=== PATIENT | male | born 1955 | race Caucasian/White ===

== ENCOUNTER 2017-02-06 16:28 | Emergency (ER) | payer MEDICARE ==
[2017-02-06 16:37] VITALS: BMI 24.2
[2017-02-06 16:43] VITALS: TEMP 97.7
[2017-02-06 17:20] LABS: ADD MANUAL DIFF? NO
[2017-02-06] MEDS ORDERED: Levalbuterol 1.25 MG/3 ML Inhal Soln UD IH STA (17:25)
[2017-02-06 17:28] LABS: BASO # 0.04 K/mm3 (0.0-2.0); BASO % 0.5 % (0.0-3.0); EOS # 0.3 (0.0-0.7); EOS % 3.1 % (1.5-5.0); GRAN # 4.85 (1.4-6.5); GRAN % 59.8 % (50.0-68.0); HEMATOCRIT 34.4 % (42.0-52.0); LYMPH # 2.5 (1.2-3.4); LYMPH % 30.2 % (22.0-35.0); MEAN CORPUSCULAR HEMOGLOBIN 30.7 pg (25.0-35.0); MEAN CORPUSCULAR HGB CONC 34.9 g/dl (31.0-37.0); MEAN PLATELET VOLUME 9.6 fl (7.0-11.0); MONO # 0.5 (0.1-0.6); MONO % 6.4 % (1.0-6.0); PLATELET COUNT 217 10^3/uL (120.0-450.0); RED CELL DISTRIBUTION WIDTH 14.6 % (11.5-14.5); WHITE BLOOD COUNT 8.1 10^3/ul (4.5-11.0)
[2017-02-06 17:50] LABS: ALB/GLOB RATIO 1.3 (1.1-1.8); ALKALINE PHOSPHATASE 122 U/L (38-133); ALT/SGPT 30 U/L (7-56); AST/SGOT 33 U/L (15-59); BILIRUBIN,TOTAL 0.4 mg/dL (0.2-1.3); BLOOD UREA NITROGEN 8 mg/dL (7-21); CALCIUM 9.4 mg/dL (8.4-10.5); CARBON DIOXIDE 25 mmol/L (21-33); CHLORIDE 102 mmol/L (98-107); GFR AFRICAN-AMERICAN > 60; GLUCOSE,RANDOM 108 mg/dL (70-110); LIPASE 94 U/L (23-300); POTASSIUM 3.7 mmol/L (3.6-5.0); SODIUM 140 mmol/L (132-148); TOTAL PROTEIN 7.7 g/dL (5.8-8.3)
--- NOTE | 2017-02-06 17:51 | ED PDOC ---
Arrival/HPI - General Chief Complaint: Medical Clearance Time Seen by Provider: 02/06/17 16:54 Historian: Family (Son) - History of Present Illness Narrative History of Present Illness (Text): 02/06/17 16:55 A 61 year old male, whose past medical history includes hypertension, diabetes, CAD/CABG, AICD and alcohol abuse, is brought into the emergency department via EMS. According to the patient's son, whom I spoke with on the phone, the patient came home intoxicated and seemed very upset. Son states the patient was cursing and throwing stuff around so he was concerned that the patient may have a heart attack due to his history. Patient admits to alcohol use earlier today but denies any chest pain, shortness of breath, fever, chills, nausea, vomiting , or any other complaints at this time. PMD: Dr. Yoder Time/Duration: Prior to Arrival Symptom Onset: Sudden Symptom Course: Unchanged Quality: Other Activities at Onset: Rest Context: Home Past Medical History - Provider Review Nursing Documentation Reviewed: Yes - Past History Past History: Non-Contributing - Infectious Disease Hx of Infectious Diseases: None - Tetanus Immunization Tetanus Immunization: Unknown - Cardiac Hx Cardiac Disorders: Yes Hx Hypertension: Yes Hx Internal Defibrillator: Yes Hx Pacemaker: Yes Other/Comment: bypass x 10 stents - Pulmonary Hx Asthma: Yes - Neurological Hx Dizziness: Yes - HEENT Hx Cataracts: Yes (bilateral catarct surgery) - Endocrine/Metabolic Hx Diabetes Mellitus Type 2: Yes - Musculoskeletal/Rheumatological Hx Falls: No - Gastrointestinal Hx Gastrointestinal Disorders: Yes - Psychiatric Hx Depression: No Hx Substance Use: No - Past Surgical History Past Surgical History: Unable to Obtain - Surgical History Hx Coronary Stent: Yes (10 stents) - Anesthesia Hx Anesthesia: Yes Hx Anesthesia Reactions: No Hx Malignant Hyperthermia: No - Suicidal Assessment Feels Threatened In Home Enviroment: No Family/Social History - Physician Review Nursing Documentation Reviewed: Yes Family/Social History: Unknown Family HX Smoking Status: Former Smoker Hx Alcohol Use: Yes Frequency of alcohol use: Few days per week Hx Substance Use: No Hx Substance Use Treatment: No Allergies/Home Meds Allergies/Adverse Reactions: Allergies No Known Allergies Allergy (Verified 10/22/16 18:38) Home Medications: Home Meds Medication Instructions Recorded Confirmed Unobtainable 10/22/16 10/22/16 Review of Systems - Physician Review All systems were reviewed & negative as marked: Yes - Review of Systems Constitutional: Other (alcohol use). absent: Fevers Respiratory: absent: SOB Cardiovascular: absent: Chest Pain Gastrointestinal: absent: Abdominal Pain, Diarrhea, Nausea, Vomiting Physical Exam Vital Signs Reviewed: Yes Vital Signs Temp Pulse Resp BP Pulse Ox 02/06/17 22:00 90 20 151/73 H 97 02/06/17 20:40 98 H 20 142/83 96 02/06/17 19:29 95 H 20 131/77 98 02/06/17 18:29 94 H 14 140/74 100 02/06/17 16:43 97.7 F 89 18 122/66 98 Temperature: Afebrile Blood Pressure: Normal Pulse: Regular Respiratory Rate: Normal Appearance: Positive for: Well-Appearing, Non-Toxic, Comfortable Pain Distress: None Mental Status: Positive for: Alert and Oriented X 3 Finger Stick Blood Glucose: 98 - Systems Exam Head: Present: Atraumatic, Normocephalic Pupils: Present: PERRL Extroacular Muscles: Present: EOMI Conjunctiva: Present: Normal Mouth: Present: Moist Mucous Membranes, Other (alcohol on breath) Neck: Present: Normal Range of Motion Respiratory/Chest: Present: Good Air Exchange, Wheezes (very mild wheeze at the left base). No: Respiratory Distress, Accessory Muscle Use Cardiovascular: Present: Regular Rate and Rhythm, Normal S1, S2. No: Murmurs Abdomen: Present: Normal Bowel Sounds. No: Tenderness, Distention, Peritoneal Signs Back: Present: Normal Inspection Upper Extremity: Present: Normal Inspection. No: Cyanosis, Edema Lower Extremity: Present: Normal Inspection. No: Edema Neurological: Present: GCS=15, CN II-XII Intact, Speech Normal Skin: Present: Warm, Dry, Normal Color. No: Rashes Psychiatric: Present: Alert, Oriented x 3, Normal Insight, Normal Concentration Medical Decision Making ED Course and Treatment: 02/06/17 16:55 Impression: A 61 year old male with an extensive cardiac history and alcohol abuse. Differential Diagnosis included but are not limited to: ACS vs. alcohol abuse Plan: -- EKG -- Chest X-ray -- Labs -- Urinalysis -- Xopenex -- Reassess and disposition Prior Visits: Notes and results from previous visits were reviewed. The patient last presented to the emergency department on 10/22/16 for chest pain and headache. Progress Notes: 02/06/17 19:00 Chest X-ray: Creator : Jama Rossi MD IMPRESSION: No active disease. No significant interval change compared to the prior examination(s). 02/06/17 22:42 Patient seem and examined with no acute physical complaints here in the emergency department. He was medically cleared and seen by PES and was cleared for discharge - ok for d/c to follow up pmd. 02/06/17 22:48 Information about rehab services given to patient. - Lab Interpretations Lab Results: 02/06/17 17:00 02/06/17 17:00 Lab Results 02/06/17 19:00: Urine Opiates Screen Negative, Urine Methadone Screen Negative, Ur Barbiturates Screen Negative, Ur Phencyclidine Scrn Negative, Ur Amphetamines Screen Negative, U Benzodiazepines Scrn Negative, U Oth Cocaine Metabols Negative, U Cannabinoids Screen Negative 02/06/17 19:00: Urine Color Yellow, Urine Appearance Sl cloudy, Urine pH 6.5, Ur Specific [place] 1.010, Urine Protein 100 H, Urine Glucose (UA) Negative, Urine Ketones Negative, Urine Blood Small H, Urine Nitrate Negative, Urine Bilirubin Negative, Urine Urobilinogen 0.2, Ur Leukocyte Esterase Negative, Urine RBC 0 - 2, Urine WBC Negative 02/06/17 17:00: Alcohol, Quantitative 176 H 02/06/17 17:00: Sodium 140, Potassium 3.7, Chloride 102, Carbon Dioxide 25, Anion Gap 17, BUN 8, Creatinine 1.0, Est GFR ( Amer) > 60, Est GFR (Non- Af Amer) > 60, Random Glucose 108, Calcium 9.4, Total Bilirubin 0.4, AST 33, ALT 30, Alkaline Phosphatase 122, Total Protein 7.7, Albumin 4.4, Globulin 3.3, Albumin/Globulin Ratio 1.3, Lipase 94 02/06/17 17:00: WBC 8.1, RBC 3.91, Hgb 12.0 L, Hct 34.4 L, MCV 88.0, MCH 30.7, MCHC 34.9, RDW 14.6 H, Plt Count 217, MPV 9.6, Gran % 59.8, Lymph % (Auto) 30.2 , Bee % (Auto) 6.4 H, Eos % (Auto) 3.1, Baso % (Auto) 0.5, Gran # 4.85, Lymph # 2.5, Bee # 0.5, Eos # 0.3, Baso # 0.04 02/06/17 16:38: POC Glucose (mg/dL) 97 I have reviewed the lab results: Yes - RAD Interpretation Radiology Orders: 02/06/17 17:08 CHEST PORTABLE [RAD] Stat - EKG Interpretation EKG Interpretation (Text): 02/06/17 22:45 NSR @ 89 with poor R wave progression; no new ST/T changes c/w previous on ; normal intervals; normal axis. Interpreted by ED Physician: Yes Type: 12 lead EKG Comparison: Similar to previous EKG (10/22/16) - Medication Orders Current Medication Orders: Discontinued Medications Levalbuterol HCl (Xopenex) 1.25 mg IH STAT STA Stop: 02/06/17 17:26 Last Admin: 02/06/17 17:31 Dose: 1.25 mg - Scribe Statement The provider has reviewed the documentation as recorded by the Yaoibe Anirudh Her Provider Scribe Attestation: All medical record entries made by the Scribe were at my direction and personally dictated by me. I have reviewed the chart and agree that the record accurately reflects my personal performance of the history, physical exam, medical decision making, and the department course for this patient. I have also personally directed, reviewed, and agree with the discharge instructions and disposition. Disposition/Present on Arrival - Present on Arrival Any Indicators Present on Arrival: Yes History of DVT/PE: No History of Uncontrolled Diabetes: Yes Urinary Catheter: No History of Decub. Ulcer: No History Surgical Site Infection Following: None - Disposition Have Diagnosis and Disposition been Completed?: Yes Diagnosis: Alcohol-induced mood disorder Disposition: HOME/ ROUTINE Disposition Time: 22:45 Patient Plan: Discharge Condition: GOOD Additional Instructions: Stop alcohol use. Recommend rehab (see information sheet given to you). Follow up with your primary care doctor. Return to the emergency department if any new concerning symptoms. Referrals: Lynn Yoder MD [Primary Care Provider] - Follow up with primary
--- NOTE | 2017-02-06 18:55 | RAD ---
HISTORY: psych . Technique: Single view portable semi erect @ 17:12. COMPARISON: 10/22/2016 PA FINDINGS: LUNGS: No active pulmonary disease. PLEURA: No significant pleural effusion identified, no pneumothorax apparent. CARDIOVASCULAR: No radiographic findings to suggest acute or significant cardiovascular disease. Position/ configuration of pacemaker device: Satisfactory. OSSEOUS STRUCTURES: No significant abnormalities. VISUALIZED UPPER ABDOMEN: Normal. OTHER FINDINGS: None. IMPRESSION: No active disease. No significant interval change compared to the prior examination(s).
[2017-02-06 19:25] LABS: PH,URINE 6.5 (4.7-8.0); URINE BILIRUBIN NEGATIVE (NEGATIVE); URINE BLOOD SMALL (NEGATIVE); URINE GLUCOSE (UA) NEGATIVE (NEGATIVE); URINE KETONE NEGATIVE (NEGATIVE); URINE LEUKOCYTE ESTERASE NEGATIVE Leu/uL (NEGATIVE); URINE PROTEIN 100 mg/dL (<30 mg/dL); URINE UROBILINOGEN 0.2 E.U./dL (<1 E.U./dL)
[2017-02-06 19:28] LABS: URINE APPEARANCE SL CLOUDY (CLEAR); URINE COLOR YELLOW (YELLOW)
[2017-02-06 19:30] VITALS: RESP 20
[2017-02-06 19:33] LABS: URINE RBC 0 - 2 /hpf (0-2); URINE WBC NEGATIVE /hpf (0-6)
[2017-02-06 22:17] VITALS: BP 151/73; PULSE 90; O2SAT 97
--- NOTE | 2017-02-07 14:27 | CARD ---
APPROVED REPORT EKG Measurement Heart [id number] <Conclusion> Sinus rhythm with occasional premature ventricular complexes Possible Left atrial enlargement Anteroseptal infarct, age undetermined Small q waves 2,3,F STTW changes c/w ischemia
== END 2017-02-06 22:53 | disposition home or self-care (01) ==
LOC: ED 16:28
DX: F10.94 Alcohol use, unspecified with alcohol-induced mood disorder (principal); Y90.6 Blood alcohol level of 120-199 mg/100 ml; I10 Essential (primary) hypertension; E11.9 Type 2 diabetes mellitus without complications; Z95.1 Presence of aortocoronary bypass graft; Z87.891 Personal history of nicotine dependence
CPT/HCPCS: 71010; 80053; 81001; 82948; 83690; 85025; 90791; 93005; 99284; G0480

== ENCOUNTER 2017-08-30 18:23 | Observation (INO) | payer MEDICARE, OTHER ==
[2017-08-30 18:27] VITALS: BMI 25.7
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
[2017-08-30 19:24] LABS: BASO # 0.04 K/mm3 (0.0-2.0); BASO % 0.4 % (0.0-3.0); EOS # 0.3 (0.0-0.7); EOS % 3.2 % (1.5-5.0); GRAN # 5.45 (1.4-6.5); GRAN % 55.9 % (50.0-68.0); HEMOGLOBIN 13.7 g/dL (14.0-18.0); LYMPH # 3.3 (1.2-3.4); LYMPH % 34.1 % (22.0-35.0); MEAN CELL VOLUME 91.4 fl (80.0-105.0); MEAN CORPUSCULAR HEMOGLOBIN 32.6 pg (25.0-35.0); MEAN CORPUSCULAR HGB CONC 35.7 g/dl (31.0-37.0); MEAN PLATELET VOLUME 10.8 fl (7.0-11.0); MONO # 0.6 (0.1-0.6); MONO % 6.4 % (1.0-6.0); RBC 4.2 10^6/uL (3.5-6.1); RED CELL DISTRIBUTION WIDTH 12.1 % (11.5-14.5); WHITE BLOOD COUNT 9.7 10^3/ul (4.5-11.0)
[2017-08-30 19:37] LABS: ALB/GLOB RATIO 1.2 (1.1-1.8); ALBUMIN 4.3 g/dL (3.0-4.8); ALT/SGPT 28 U/L (7-56); AST/SGOT 35 U/L (17-59); BLOOD UREA NITROGEN 9 mg/dL (7-21); CALCIUM 9.4 mg/dL (8.4-10.5); GFR AFRICAN-AMERICAN > 60; GFR NON-AFRICAN AMERICAN > 60
[2017-08-30 19:48] LABS: TROPONIN I 0.12 ng/mL
[2017-08-30] MEDS ORDERED: Influenza Vaccine 60 mcg/0.5 mL SYR (4YR UP) IM ONE (21:31)
[2017-08-30] MEDS ORDERED: Pneumococcal 23-Valent Vaccine IM ONE (21:31)
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
[2017-08-31] MEDS ORDERED: Pantoprazole 40 mg EC Tab PO SCH (06:00)
[2017-08-31 06:22] LABS: BASO # 0.04 K/mm3 (0.0-2.0); BASO % 0.5 % (0.0-3.0); EOS # 0.2 (0.0-0.7); EOS % 2.7 % (1.5-5.0); GRAN # 6.42 (1.4-6.5); GRAN % 72.8 % (50.0-68.0); HEMOGLOBIN 12.7 g/dL (14.0-18.0); LYMPH # 1.6 (1.2-3.4); LYMPH % 18.2 % (22.0-35.0); MEAN CELL VOLUME 91.6 fl (80.0-105.0); MEAN CORPUSCULAR HEMOGLOBIN 32.2 pg (25.0-35.0); MEAN CORPUSCULAR HGB CONC 35.1 g/dl (31.0-37.0); MEAN PLATELET VOLUME 10.6 fl (7.0-11.0); MONO # 0.5 (0.1-0.6); MONO % 5.8 % (1.0-6.0); RBC 3.95 10^6/uL (3.5-6.1); RED CELL DISTRIBUTION WIDTH 12.2 % (11.5-14.5); WHITE BLOOD COUNT 8.8 10^3/ul (4.5-11.0)
[2017-08-31 06:23] VITALS: RESP 20
[2017-08-31 06:32] VITALS: O2SAT 97
[2017-08-31 06:40] LABS: ALB/GLOB RATIO 1.1 (1.1-1.8); ALBUMIN 3.8 g/dL (3.0-4.8); ALT/SGPT 26 U/L (7-56); AST/SGOT 37 U/L (17-59); BLOOD UREA NITROGEN 9 mg/dL (7-21); CALCIUM 9.2 mg/dL (8.4-10.5); GFR AFRICAN-AMERICAN > 60; GFR NON-AFRICAN AMERICAN > 60
--- NOTE | 2017-08-31 08:40 | RAD ---
HISTORY: Zero chest pain. Portable study 19:06 COMPARISON: 02/06/2017 FINDINGS: LUNGS: No active pulmonary disease. PLEURA: No significant pleural effusion identified, no pneumothorax apparent. CARDIOVASCULAR: No radiographic findings to suggest acute or significant cardiovascular disease. Position/ configuration of pacemaker device: Satisfactory. Macro CABG OSSEOUS STRUCTURES: No significant abnormalities. VISUALIZED UPPER ABDOMEN: Normal. OTHER FINDINGS: None. IMPRESSION: No active disease. No significant interval change compared to the prior examination(s).
[2017-08-31 08:43] LABS: TROPONIN I 0.11 ng/mL
[2017-08-31] MEDS: Insulin Lispro (humaLOG) MEDIUM Coverage SC SCH ×2 (08:47→12:22)
[2017-08-31] MEDS ORDERED: Enoxaparin 60 mg Syringe SC SCH (09:15)
[2017-08-31] MEDS ORDERED: Rosuvastatin Calcium [Crestor] 40 MG (HOME MED) PO SCH (10:00)
[2017-08-31] MEDS ORDERED: Aspirin 325 mg EC Tablets PO SCH (10:00)
[2017-08-31 12:09] VITALS: BP 135/82; PULSE 84; TEMP 97.8
--- NOTE | 2017-08-31 18:25 | CARD ---
APPROVED REPORT EKG Measurement Heart [id number] [place] [id number] <Conclusion> Sinus rhythm with occasional premature ventricular complexes and fusion complexes Anteroseptal infarct, age undetermined Abnormal ECG
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
--- NOTE | 2017-09-04 08:18 | CON ---
CONSULTING SERVICE: Cardiology. REASON FOR THE CONSULTATION: Unstable angina, chest pain, alcoholic intoxication, history of coronary artery disease, history of CABG recently a year ago. BRIEF CLINICAL HISTORY: This is a 62 year old male with a past medical history significant for coronary artery disease being followed by [facility], [facility]. History of coronary artery disease, CABG in 10/2016, history of AICD, history of alcohol abuse, he was drinking yesterday and had a dispute with and then developed chest pain, came to the emergency room here. First troponin 0.12, second troponin 0.12. The patient states that my chest discomfort completely feels better, wanted to go home. Denies any chest pain now. In view of troponin positive, cath offered to the patient, but the patient wanted to go the [facility] with Dr. Osorio, because since he is being taken care for a long time and for the continuity of care, he wanted to go there, and if cath is needed, he wanted it to be done there. PAST HISTORY: Significant for coronary artery disease, is status post multiple stents, last stent was in 09/29/2016. Then, the patient admitted here on 10/22/2016 with unstable angina, and upon the patient's request, the patient was transferred to [facility] for the patient's cath and then the patient had a coronary artery bypass surgery in the end of 10/2016. History of AICD since 1999, history of diabetes, history of hyperlipidemia. CARDIAC STUDIES: Previous cardiac workup as follows; the patient had an echo done 08/02/2017 most recently, at [facility], read by and that shows ventricle function severely reduced, ejection fraction 15% by , mild apical septal anteroseptal wall akinetic, normal Doppler. The patient had a coronary artery bypass surgery in 10/2016. The patient admitted here in 10/22/2016 with unstable angina, and upon the patient's request he was transferred to [facility]. Prior to this, the patient had a multiple stent and history AICD. SOCIAL HISTORY: Alcohol abuse, claims that he has stopped drinking, but blood alcohol level is 198 on admission. ALLERGIES: NO KNOWN DRUG ALLERGIES. CURRENT MEDICATIONS: The patient is taking at home metformin, Januvia, atorvastatin, glimepiride, Plavix. REVIEW OF SYSTEMS: As per HPI. PHYSICAL EXAMINATION: VITAL SIGNS: Temperature afebrile, heart rate , blood pressure 133/72. HEENT: PERRLA. Extraocular muscles intact. NECK: Supple. No carotid bruits or thyromegaly. CHEST: Clear to auscultation. HEART: S1, S2 regular. ABDOMEN: Soft. EXTREMITIES: Clubbing and cyanosis negative. LABORATORY DATA: EKG showed normal sinus, poor RR progression, anterior wall AL of undetermined age. Blood workup; WBC 8.8, hemoglobin 12.7, hematocrit 36.2, and platelet count 231. Chemistry shows sodium 139, potassium 4, chloride 105, carbon dioxide 25, anion gap of 13, BUN 9, and creatinine 0.7, troponin 0.11. IMPRESSION: Acute coronary syndrome, alcoholic intoxication, coronary artery disease, coronary artery bypass graft, diabetes, hypertension and hyperlipidemia. RECOMMENDATION: We will abort Lovenox one dose, cardiac catheterization offered to the patient, the patient wanted to be transferred to [facility] with Dr. Osorio. A call placed to Dr. Osorio's service, and waiting for their response, if the accepting physician willing, then the patient would be transferred to [facility] for possible cardiac catheterization. While dictating this, Dr. Osorio called from telephone number [phone] and they will transfer the patient to [facility]. Thank you for providing us the opportunity in taking care of the patient. Anupam Hull MD
== END 2017-08-31 12:51 | disposition short-term general hospital (02) ==
LOC: ED 18:23 → ERH 20:10 → 2RSO 21:06
PROVIDERS: ADMIT Internal Medicine; ATTEND Internal Medicine
DX: F10.129 Alcohol abuse with intoxication, unspecified (principal); R07.9 Chest pain, unspecified; E11.9 Type 2 diabetes mellitus without complications; Z79.4 Long term (current) use of insulin; I25.10 Atherosclerotic heart disease of native coronary artery without angina pectoris; I10 Essential (primary) hypertension; K29.20 Alcoholic gastritis without bleeding; E78.5 Hyperlipidemia, unspecified; Z95.810 Presence of automatic (implantable) cardiac defibrillator; Z87.891 Personal history of nicotine dependence; Z95.1 Presence of aortocoronary bypass graft; Z79.02 Long term (current) use of antithrombotics/antiplatelets; Z79.82 Long term (current) use of aspirin; Z95.5 Presence of coronary angioplasty implant and graft
CPT/HCPCS: 36415; 71010; 80053; 82550; 82948; 83615; 84484; 85025; 93005; 96372; 99285; G0378; G0480; J1650

== ENCOUNTER 2018-05-08 08:13 | Observation (INO) | payer MEDICARE ==
[2018-05-08 08:21] VITALS: BMI 23.3
[2018-05-08] MEDS ORDERED: Morphine 4 mg/ml ISec IVP STA (08:26)
[2018-05-08] MEDS ORDERED: Sodium Chloride 0.9% 500 ML IV STA (08:28)
[2018-05-08 08:48] LABS: BASO # 0.05 K/mm3 (0.0-2.0); BASO % 0.6 % (0.0-3.0); EOS # 0.2 (0.0-0.7); EOS % 2.8 % (1.5-5.0); GRAN # 6.22 (1.4-6.5); GRAN % 72.5 % (50.0-68.0); LYMPH # 1.4 (1.2-3.4); LYMPH % 15.7 % (22.0-35.0); MEAN CELL VOLUME 90.8 fl (80.0-105.0); MEAN CORPUSCULAR HGB CONC 35.2 g/dl (31.0-37.0); MEAN PLATELET VOLUME 11.5 fl (7.0-11.0); MONO # 0.7 (0.1-0.6); MONO % 8.4 % (1.0-6.0); RBC 4.69 10^6/uL (3.5-6.1); RED CELL DISTRIBUTION WIDTH 13.8 % (11.5-14.5); WHITE BLOOD COUNT 8.6 10^3/ul (4.5-11.0)
[2018-05-08 08:49] LABS: INR 0.9; PROTHROMBIN TIME 10.3 SECONDS (9.4-12.5)
--- NOTE | 2018-05-08 09:00 | ED PDOC ---
Arrival/HPI - General Chief Complaint: Chest Pain Time Seen by Provider: 05/08/18 08:20 Historian: Patient - History of Present Illness Narrative History of Present Illness (Text): 05/08/18 08:25 62 year old male, whose past medical history includes high cholesterol, hypertension, cardiomyopathy, Coronary Artery bypass graft, non-stemi PA and diabetes, who was brought in by S with aching midsternal chest pain for the past hour, described as 6/10. Patient notes the pain started after he took his morning medication. Patient states the pain he is feeling reminds him of the pain he had during a previous heart attack. Patient is currently taking Plavix and Lanoxin as home medication. Patient denies any fever, chills, shortness of breath, nausea, vomiting, diarrhea, urinary symptoms, back pain, neck pain, headache, dizziness, or any other complaints. Time/Duration: Prior to Arrival (patient notes chest pain for about 1 hour now, started when he took his morning medication) Symptom Onset: Sudden Symptom Course: Unchanged Quality: Aching Severity Level: 6 Activities at Onset: Light Past Medical History - Provider Review Nursing Documentation Reviewed: Yes - Past History Past History: Non-Contributing - Infectious Disease Hx of Infectious Diseases: None - Tetanus Immunization Tetanus Immunization: Unknown - Cardiac Hx PA: Yes Hx Pacemaker: Yes ([employer]) - Pulmonary Hx Asthma: Yes - Neurological Hx Paralysis: No - HEENT Hx Cataracts: Yes (bilateral catarct surgery) - Endocrine/Metabolic Hx Diabetes Mellitus Type 2: Yes - Hematological/Oncological Hx Blood Transfusions: Yes Hx Blood Transfusion Reaction: No - Musculoskeletal/Rheumatological Hx Musculoskeletal Disorders: Yes - Gastrointestinal Hx Gastrointestinal Disorders: Yes - Genitourinary/Gynecological Hx Sexually Transmitted Diseases: No - Psychiatric Hx Depression: No Hx Substance Use: No - Past Surgical History Past Surgical History: Unable to Obtain - Surgical History Hx Coronary Artery Bypass Graft: Yes Hx Coronary Stent: Yes - Anesthesia Hx Anesthesia: Yes Hx Anesthesia Reactions: No Hx Malignant Hyperthermia: No - Suicidal Assessment Feels Threatened In Home Enviroment: No Family/Social History - Physician Review Nursing Documentation Reviewed: Yes Family/Social History: No Known Family HX Smoking Status: Former Smoker Hx Alcohol Use: (OCCASIONAL) Hx Substance Use: No Hx Substance Use Treatment: No Allergies/Home Meds Allergies/Adverse Reactions: Allergies No Known Allergies Allergy (Verified 03/14/18 09:25) Home Medications: Home Meds Medication Instructions Recorded Confirmed Clopidogrel [Plavix] 75 mg PO DAILY 08/30/17 05/08/18 Glimepiride [Amaryl] 4 mg PO DAILY 08/30/17 05/08/18 Multivitamin [Daily Danyell] 1 each PO DAILY 08/30/17 05/08/18 Omeprazole Magnesium [Prilosec Otc] 40 mg PO DAILY 08/30/17 05/08/18 Rosuvastatin Calcium [Crestor] 20 mg PO DAILY 08/30/17 05/08/18 SITagliptin [Januvia] 100 mg PO DAILY 08/30/17 05/08/18 metFORMIN [glucOPHAGE] 850 mg PO BID 08/30/17 05/08/18 Digoxin [Lanoxin] 0.125 mg PO DAILY 11/14/17 05/08/18 Entresto 49 mg-51 mg Tablet 1 tab PO BID 11/14/17 05/08/18 Furosemide [Lasix] 40 mg PO TID 11/14/17 05/08/18 Aspirin [Adult Low Dose Aspirin EC] 1 tab PO DAILY 05/08/18 05/08/18 Carvedilol [Coreg] 1 tab PO BID 05/08/18 05/08/18 Linaclotide [Linzess] 72 mcg PO DAILY 05/08/18 05/08/18 Spironolactone [Aldactone] 1 tab PO DAILY 05/08/18 05/08/18 Review of Systems - Physician Review All systems were reviewed & negative as marked: Yes - Review of Systems Constitutional: Normal. absent: Fevers Eyes: Normal ENT: Normal Respiratory: Normal. absent: SOB, Cough Cardiovascular: Chest Pain (midsternal chest pain for past hour, started after he took his morning medication). absent: Normal Gastrointestinal: Normal. absent: Diarrhea, Nausea, Vomiting Genitourinary Male: Normal Musculoskeletal: Normal. absent: Back Pain, Neck Pain Skin: Normal Neurological: Normal. absent: Headache, Dizziness Endocrine: Normal Hemo/Lymphatic: Normal Psychiatric: Normal Physical Exam Vital Signs Reviewed: Yes Vital Signs Temp Pulse Resp BP Pulse Ox 05/08/18 12:56 98.3 F 90 16 132/76 100 05/08/18 12:54 98.3 F 90 16 132/76 100 05/08/18 11:00 79 18 132/89 100 05/08/18 08:26 98.3 F 104 H 17 158/92 H 99 Temperature: Afebrile Blood Pressure: Hypertensive Pulse: Tachycardic Respiratory Rate: Normal Appearance: Positive for: Well-Appearing, Non-Toxic, Comfortable Pain Distress: None Mental Status: Positive for: Alert and Oriented X 3 Finger Stick Blood Glucose: 233 - Systems Exam Head: Present: Atraumatic, Normocephalic Pupils: Present: PERRL Extroacular Muscles: Present: EOMI Conjunctiva: Present: Normal Mouth: Present: Moist Mucous Membranes Neck: Present: Normal Range of Motion Respiratory/Chest: Present: Clear to Auscultation, Good Air Exchange. No: Respiratory Distress, Accessory Muscle Use Cardiovascular: Present: Regular Rate and Rhythm, Normal S1, S2. No: Murmurs Abdomen: No: Tenderness, Distention, Peritoneal Signs Back: Present: Normal Inspection Upper Extremity: Present: Normal Inspection. No: Cyanosis, Edema Lower Extremity: Present: Normal Inspection. No: Edema Neurological: Present: GCS=15, CN II-XII Intact, Speech Normal Skin: Present: Warm, Dry, Normal Color. No: Rashes Psychiatric: Present: Alert, Oriented x 3, Normal Insight, Normal Concentration Medical Decision Making ED Course and Treatment: 05/08/18 08:25 Impression: 62 year old male who presents to the emergency department for midsternal chest pain for 1 hour prior to arrival, after he took his morning medication. Plan: -- EKG -- Labs -- X-Ray of chest -- Glucose, POC routine -- Morphine -- Nitrostat SL tab -- IV fluids -- Zofran -- Fancy Needleworker ONCE -- Reassess and disposition Prior Visits: Notes and results from previous visits were reviewed. Progress Notes: EKG: Ordered, reviewed, and independently interpreted the EKG. Rate : 116 BPM Rhythm : Sinus Tachycardia Interpretation : No ST-segment elevations or depressions, no T-wave inversions, normal intervals. Comparison : No previous EKG for comparison. X-Ray of chest reviewed by radiologist, shows: Dictator : George Arciniega MD Report Date : 05/08/2018 10:26:26 FINDINGS: LUNGS: No active pulmonary disease. PLEURA: No significant pleural effusion identified, no pneumothorax apparent. CARDIOVASCULAR: Normal heart size. AICD. Sternotomy wires. CABG. OSSEOUS STRUCTURES: No significant abnormalities. VISUALIZED UPPER ABDOMEN: Normal. OTHER FINDINGS: None. IMPRESSION: No active disease. 05/08/18 11:[address] Yoder who is aware of and agrees with plan. Patient will be admitted for acute coronary syndrome. - Lab Interpretations Lab Results: 05/08/18 08:20 05/08/18 08:20 Lab Results 05/08/18 08:35: POC Glucose (mg/dL) 233 H 05/08/18 08:20: Sodium 136, Potassium 4.7, Chloride 106, Carbon Dioxide 19 L, Anion Gap 16, BUN 11, Creatinine 0.7 L, Est GFR ( Amer) > 60, Est GFR ( Non-Af Amer) > 60, Random Glucose 258 H, Calcium 9.3, Phosphorus 4.6 H, Magnesium 1.3 L, Total Bilirubin 0.4, AST 25, ALT 19, Alkaline Phosphatase 101, Lactate Dehydrogenase 422, Total Creatine Kinase 61, Troponin I 0.02 D, NT-Pro- B Natriuret Pep 1770 H, Total Protein 7.0, Albumin 3.7, Globulin 3.3, Albumin/ Globulin Ratio 1.1 05/08/18 08:20: PT 10.3, INR 0.90 05/08/18 08:20: WBC 8.6, RBC 4.69, Hgb 15.0 D, Hct 42.6, MCV 90.8, MCH 32.0, MCHC 35.2, RDW 13.8, Plt Count 155, MPV 11.5 H, Gran % 72.5 H, Lymph % (Auto) 15.7 L, [place] % (Auto) 8.4 H, Eos % (Auto) 2.8, Baso % (Auto) 0.6, Gran # 6.22, Lymph # (Auto) 1.4, [place] # (Auto) 0.7 H, Eos # (Auto) 0.2, Baso # (Auto) 0.05 - RAD Interpretation Radiology Orders: 05/08/18 08:26 CHEST PORTABLE [RAD] Stat Track Repair Worker: Radiologist - EKG Interpretation Interpreted by ED Physician: Yes Type: 12 lead EKG - Medication Orders Current Medication Orders: Acetaminophen (Tylenol 325mg Tab) 650 mg PO Q6H PRN PRN Reason: Fever >100.4 F Aspirin (Ecotrin) 81 mg PO DAILY [facility] Last Admin: 05/09/18 09:28 Dose: 81 mg Atorvastatin Calcium (Lipitor) 80 mg PO DAILY [facility] Last Admin: 05/09/18 09:27 Dose: 80 mg Carvedilol (Coreg) 6.25 mg PO BID [facility] Last Admin: 05/09/18 09:27 Dose: 6.25 mg MAR Pulse and Blood Pressure Document 05/09/18 09:27 DEL (Rec: 05/09/18 09:27 [id number]) Pulse Pulse Rate (60-90) 74 Blood Pressure Blood Pressure (100/60-150/90) 112/76 Digoxin (Digoxin) 0.125 mg PO DAILY [facility] Last Admin: 05/09/18 09:28 Dose: 0.125 mg MAR Apical Pulse Rate Document 05/09/18 09:28 DEL (Rec: 05/09/18 09:28 [id number]) Apical Pulse Rate Apical Pulse Rate (60-90 beats/min) 74 Enoxaparin Sodium (Lovenox) 60 mg SC Q12H [facility] PRN Reason: Protocol Last Admin: 05/09/18 05:46 Dose: 60 mg Subcutaneous Administrations Document 05/09/18 05:46 OWUSR (Rec: 05/09/18 05:47 OWUSR [id number]) Injection Site MAR Injection Site Right Abdomen Charges for Administration # of Subcutaneous Administrations 1 Furosemide (Lasix) 40 mg PO BID [facility] Last Admin: 05/09/18 09:27 Dose: 40 mg MAR Blood Pressure Document 05/09/18 09:27 DEL (Rec: 05/09/18 09:27 DEL [id number]) Blood Pressure Blood Pressure (100/60-150/90) 112/76 Glimepiride (Amaryl) 4 mg PO DAILY [facility] Last Admin: 05/09/18 09:36 Dose: Dextrose/Sodium Chloride (Dextrose 5%/0.45% Ns 1000 Ml) 1,000 mls @ 50 mls/hr IV .Q20H [facility] Metformin HCl (Glucophage) 850 mg PO BID [facility] Last Admin: 05/09/18 09:36 Dose: Pantoprazole Sodium (Protonix Ec Tab) 40 mg PO 0630 [facility] Last Admin: 05/09/18 05:47 Dose: 40 mg Sacubitril/Valsartan (Entresto 49 Mg-51 Mg Tablet) 1 each PO BID [facility] Last Admin: 05/09/18 09:28 Dose: 1 each Sitagliptin Phosphate (Januvia) 100 mg PO DAILY [facility] Last Admin: 05/09/18 09:36 Dose: Not Given Non-Admin Reason: NPO Spironolactone (Aldactone) 25 mg PO BID [facility] Last Admin: 05/09/18 09:26 Dose: 25 mg Ticagrelor (Brilinta) 90 mg PO BID [facility] Last Admin: 05/09/18 09:27 Dose: 90 mg Discontinued Medications Al Hydrox/Mg Hydrox/Simethicone (Maalox Plus 30 Ml) 30 ml PO STAT STA Stop: 05/08/18 10:52 Last Admin: 05/08/18 11:18 Dose: 30 ml Belladonna/Phenobarbital ( Elixir) 5 ml PO STAT STA Stop: 05/08/18 10:52 Last Admin: 05/08/18 11:28 Dose: 5 ml Clopidogrel Bisulfate (Plavix) 75 mg PO DAILY [facility] Last Admin: 05/08/18 15:19 Dose: 75 mg Sodium Chloride (Sodium Chloride 0.9%) 500 mls @ 999 mls/hr IV .Q31M STA Stop: 05/08/18 08:58 Last Admin: 05/08/18 08:40 Dose: 999 mls/hr eMAR Start Stop Document 05/08/18 08:40 LM (Rec: 05/08/18 08:41 [id number] Intravenous Solution Start Date 05/08/18 Start Time 08:40 End Date 05/08/18 End time 09:10 Total Infusion Time 30 Magnesium Sulfate (Magnesium Sulfate 2 Gm/50 Ml Water) 2 gm in 50 mls @ 50 mls/ hr IVPB ONCE ONE Stop: 05/08/18 13:54 Last Admin: 05/08/18 15:17 Dose: 50 mls/hr eMAR Start Stop Document 05/08/18 15:17 JUR (Rec: 05/08/18 15:17 JUR [id number]) Intravenous Solution Start Date 05/08/18 Start Time 15:17 End Date 05/08/18 End time 17:17 Total Infusion Time 120 Magnesium Sulfate (Magnesium Sulfate 2 Gm/50 Ml Water) 2 gm in 50 mls @ 50 mls/ hr IVPB Q1H [facility] Stop: 05/09/18 10:59 Last Admin: 05/09/18 10:48 Dose: 50 mls/hr eMAR Start Stop Document 05/09/18 10:48 DEL (Rec: 05/09/18 10:49 DEL [id number]) Intravenous Solution Start Date 05/09/18 Start Time 10:48 End Date 05/09/18 End time 11:50 Total Infusion Time 62 Lidocaine HCl (Lidocaine 2% Viscous) 15 ml MM STAT STA Stop: 05/08/18 10:52 Last Admin: 05/08/18 11:18 Dose: 15 ml Magnesium Oxide (Mag-Ox) 800 mg PO STAT STA Stop: 05/09/18 09:00 Last Admin: 05/09/18 09:26 Dose: 800 mg Morphine Sulfate (Morphine) 4 mg IVP STAT STA Stop: 05/08/18 08:27 Last Admin: 05/08/18 08:41 Dose: 4 mg MAR Pain Assessment Document 05/08/18 08:41 [facility] (Rec: 05/08/18 08:41 [id number] Pain Reassessment Is this a pain reassessment? No Sleep Is patient sleeping during reassessment? No Presence of Pain Presence of Pain Yes Pain Scale Used Pain Scale Used Numeric Location Pain Location Body Site Chest Description Intensity of Pain at present 7 IVP Administration Document 05/08/18 08:41 [facility] (Rec: 05/08/18 08:41 [id number]) Charges for Administration # of IVP Administrations 1 Nitroglycerin (Nitrostat Sl Tab) 0.4 mg SL STAT STA Stop: 05/08/18 08:27 Last Admin: 05/08/18 08:52 Dose: 0.4 mg Ondansetron HCl (Zofran Inj) 4 mg IVP STAT STA Stop: 05/08/18 08:27 Last Admin: 05/08/18 08:41 Dose: 4 mg IVP Administration Document 05/08/18 08:41 [facility] (Rec: 05/08/18 08:41 [id number]) Charges for Administration # of IVP Administrations 1 Pantoprazole Sodium (Protonix Inj) 40 mg IVP STAT STA Stop: 05/08/18 10:53 Last Admin: 05/08/18 11:18 Dose: 40 mg IVP Administration Document 05/08/18 11:18 [facility] (Rec: 05/08/18 11:18 [id number]) Charges for Administration # of IVP Administrations 1 - Scribe Statement The provider has reviewed the documentation as recorded by the Yaoibjohanna Pelletier All medical record entries made by the Yaoibjohanna were at my direction and personally dictated by me. I have reviewed the chart and agree that the record accurately reflects my personal performance of the history, physical exam, medical decision making, and the department course for this patient. I have also personally directed, reviewed, and agree with the discharge instructions and disposition. Disposition/Present on Arrival - Present on Arrival Any Indicators Present on Arrival: No History of DVT/PE: No History of Uncontrolled Diabetes: Yes Urinary Catheter: No History of Decub. Ulcer: No History Surgical Site Infection Following: None - Disposition Have Diagnosis and Disposition been Completed?: Yes Diagnosis: Acute coronary syndrome, Diabetes, Chest pain Disposition: HOSPITALIZED Disposition Time: 12:00 Patient Plan: Admission, Telemetry Condition: FAIR
[2018-05-08 09:19] LABS: ALB/GLOB RATIO 1.1 (1.1-1.8); ALBUMIN 3.7 g/dL (3.0-4.8); ALT/SGPT 19 U/L (7-56); AST/SGOT 25 U/L (17-59); BLOOD UREA NITROGEN 11 mg/dL (7-21); CALCIUM 9.3 mg/dL (8.4-10.5); GFR NON-AFRICAN AMERICAN > 60
[2018-05-08 09:29] LABS: B-TYPE NATRIURETIC PEPTIDE 1770 pg/mL (0-450); TROPONIN I 0.02 ng/mL
--- NOTE | 2018-05-08 10:27 | RAD ---
Date of service: 05/08/2018 HISTORY: Chest Pain COMPARISON: 08/30/2017 FINDINGS: LUNGS: No active pulmonary disease. PLEURA: No significant pleural effusion identified, no pneumothorax apparent. CARDIOVASCULAR: Normal heart size. AICD. Sternotomy wires. CABG. OSSEOUS STRUCTURES: No significant abnormalities. VISUALIZED UPPER ABDOMEN: Normal. OTHER FINDINGS: None. IMPRESSION: No active disease.
[2018-05-08] MEDS ORDERED: Atrop/Hyosc/Scopal/PB Elixir (120 ml) PO STA (10:51)
[2018-05-08] MEDS ORDERED: Alum-Mag Hydrox-Simethicone Susp (30 mL) PO STA (10:51)
[2018-05-08 11:28] VITALS: O2SAT 100
[2018-05-08] MEDS ORDERED: Magnesium Sulfate 2 gm/50 ml 2 GM/50 ML BAG IVPB ONE (12:55)
--- NOTE | 2018-05-08 13:50 | CON ---
Copied To: Anupam Castro MD Attending MD: Anupam Castro MD DATE: 05/08/2018 LOCATION: The patient is in emergency room at present, but he is going to go to room 266, bed 1 telemetry. REASON FOR CONSULTATION: Chest pain. HISTORY OF PRESENT ILLNESS: The patient is a 62-year-old male, who is known to have coronary artery disease, cardiomyopathy, AICD insertion. The patient in 10/2016 had a coronary artery bypass surgery at [facility]. Prior to that, he had multiple stents insertions. The patient follows with renderer group of Dr. Anne and Dr. Osorio. He states about 6 months ago he had a stress test which he was told to be negative. Today, he came to the hospital because he was at rest when he had a sharp chest pain across the chest. It went to the both sides of the mandible and went to the both arms that he states he was diaphoretic with that. Family states there was no change of color. No nausea. No vomiting. He denies any prior history of exertional chest pain since bypass surgery and prior to bypass surgery, the patient has also history of IL and he states when he had IL, his pain was similar. The patient now at the time of my examination is totally chest pain free. He is lying flat in bed without any shortness of breath and he denies any palpitations. The patient states the pain lasted around 20 minutes or so. The patient also known to have diabetes mellitus and hyperlipidemia. PAST MEDICAL HISTORY: Coronary artery disease, status post multiple stents, last stent was on 09/29/2016. Then, the patient was admitted to [facility] on 10/22/2016 with unstable angina and the patient requested for transfer to [facility] where the patient ended up with coronary artery bypass surgery in end of 10/2016. The patient has history of AICD insertion since year 1999 and his cardiology group follows the AICD. The patient is known to have history of diabetes, hyperlipidemia. The patient also continues to drink. The patient had an echo on 08/02/[address] [facility], which showed mild apical, septal, anteroseptal wall akinetic normal Doppler. The patient had coronary artery bypass surgery on 10/2016. On that echo of 08/02/2017, the patient's LV ejection fraction was shown to be 15%. PERSONAL HISTORY: The patient is known to have problem with drinking of alcohol. The patient today also said that he does not drink, but his on the bedside told that he still drinks. The patient denied smoking. ALLERGIES: NO KNOWN ALLERGIES. MEDICATIONS: The patient's home medication list included Plavix 75 mg, Amaryl 4 mg daily, multivitamin 1 daily, omeprazole 40 daily, Crestor 20 daily, Januvia 100 mg daily, metformin 850 b.i.d., digoxin 0.125 daily, Entresto 49 mg - 51 mg tablet one tablet b.i.d., furosemide 40 p.o. t.i.d., aspirin 1 tablet daily, Coreg 1 tablet p.o. b.i.d., linaclotide 72 mcg p.o. daily, spironolactone 1 tablet daily. REVIEW OF SYSTEMS: All systems reviewed. Positives mentioned in the history, others were negative. PHYSICAL EXAMINATION: VITAL SIGNS: Blood pressure on arrival to emergency room was 158/92, now it is 132/89; respirations 18; pulse 79; temperature 98.3. HEENT: Head is normocephalic. Eyes: Pupils normal. Conjunctivae normal. Nose and throat normal. NECK: JVP low. Carotids equal. THORAX: AP diameter normal. LUNGS: Clear. CARDIOVASCULAR: S1 and S2. Operation scar in the mid chest for open heart surgery. ABDOMEN: Soft. No tenderness. No organomegaly. EXTREMITIES: No clubbing. No cyanosis. No edema. LABORATORY DATA: Showed WBC 8.6, hemoglobin 15, hematocrit 42.6, platelet 155. Sodium 136, potassium 4.7, BUN 11, creatinine 0.7, glucose 233, calcium 9.3, phosphorus 4.6, magnesium 1.3. AST, ALT normal. Total protein, albumin normal. Troponin 0.02. Chest x-ray: No active disease. EKG shows sinus rhythm. Q wave V1-V4 suggestive of old anteroseptal IL. Prolonged UT, ST-T changes. On admission time, first EKG shows sinus tachycardia. The second one showed heart rate of 76 per minute. DIAGNOSES: Chest pain, rule out coronary artery disease, history of coronary artery bypass surgery, history of coronary stent insertion, history of ischemic cardiomyopathy, hypertension, hyperlipidemia, the patient still drinks alcohol, hypomagnesemia. PLAN: We will check followup troponin. We will check lipid profile and TSH. The patient is on spironolactone 25 b.i.d.; Amaryl 4 mg daily; carvedilol 6.25 b.i.d.; digoxin 0.125 daily; aspirin 81 daily; sacubitril/valsartan 1 b.i.d.; metformin at 850 b.i.d.; Januvia 100 mg daily; furosemide 40 IV daily, we will change it to p.o. since the chest x-ray is clear; Januvia 100 mg daily; Lipitor 80 daily; Plavix 75 daily; Protonix 40 daily. We will add isosorbide mononitrate 60 mg p.o. daily starting today. We will give one dose of Lovenox today and we will follow the repeat enzymes and we will check lipid profile and TSH and we will give magnesium therapy. We will follow with you. Anupam Castro MD
[2018-05-08] MEDS: Digoxin 125 mcg (0.125 mg) Tab PO SCH (15:19)
--- NOTE | 2018-05-08 15:24 | CARD ---
APPROVED REPORT Date of service: 05/08/2018 EKG Measurement Heart [id number] <Conclusion> Sinus rhythm with 1st degree AV block Anteroseptal infarct, age undetermined Abnormal ECG
--- NOTE | 2018-05-08 15:26 | CARD ---
APPROVED REPORT Date of service: 05/08/2018 EKG Measurement Heart [id number] <Conclusion> Sinus tachycardia Possible Left atrial enlargement Anteroseptal infarct, age undetermined T wave abnormality, consider inferior ischemia Abnormal ECG
[2018-05-08] MEDS: SACUBITRIL 49mg/VALSARTAN 51mg tab PO SCH (17:50)
[2018-05-08] MEDS ORDERED: Enoxaparin 60 mg Syringe SC SCH (18:45)
[2018-05-09 03:14] VITALS: RESP 18
--- NOTE | 2018-05-09 05:30 | CP.PCM.PN ---
<Jordan Harris - Last Filed: 05/09/18 05:22> Subjective - Date & Time of Evaluation Date of Evaluation: 05/09/18 Time of Evaluation: 05:22 - Subjective Subjective: Progress Note for Dr. Ho CC: Nurse called for 11 beats of Vtach Pt seen and examined soon after call made. Pt was asleep in bed but easily rousable. He denied any chest pain, palpitations, SOB, diaphoresis, nausea, vomiting, lightheadedness or confusion. Objective: V: BP:128/60, HR: 63, RR: 16, 02 sat: 98, T: 98.8 General: No acute distress, non-toxic appearing, resting, easily rousable HEENT: No JVD, Cardiac: RRR, no rubs or gallops noted Resp: No use of accessory muscles, clear to auscultation b/l, no resp distress And: Soft, non-tender Extremities: No edema, pedal pulses present b/l A&P 11 consecutive beats of Vtach, spontaneously resolved pmhx of 2 prior MIs - EKG in AM. - Refer to cardio for further assessment or possible adjustment of rate control meds Objective - Vital Signs/Intake and Output Vital Signs (last 24 hours): Temp Pulse Resp BP Pulse Ox 97.8 F 62 18 112/76 100 05/09/18 00:01 05/09/18 02:00 05/09/18 00:01 05/09/18 00:01 05/08/18 12:56 - Medications Medications: Current Medications Acetaminophen (Tylenol 325mg Tab) 650 mg PO Q6H PRN PRN Reason: Fever >100.4 F Aspirin (Ecotrin) 81 mg PO DAILY [facility] Atorvastatin Calcium (Lipitor) 80 mg PO DAILY [facility] Last Admin: 05/08/18 15:19 Dose: 80 mg Carvedilol (Coreg) 6.25 mg PO BID [facility] Last Admin: 05/08/18 17:50 Dose: 6.25 mg Digoxin (Digoxin) 0.125 mg PO DAILY [facility] Last Admin: 05/08/18 15:19 Dose: 0.125 mg Enoxaparin Sodium (Lovenox) 60 mg SC Q12H [facility] PRN Reason: Protocol Furosemide (Lasix) 40 mg PO BID [facility] Last Admin: 05/08/18 17:50 Dose: 40 mg Glimepiride (Amaryl) 4 mg PO DAILY [facility] Last Admin: 05/08/18 15:19 Dose: 4 mg Metformin HCl (Glucophage) 850 mg PO BID [facility] Last Admin: 05/08/18 17:50 Dose: 850 mg Pantoprazole Sodium (Protonix Ec Tab) 40 mg PO 0630 [facility] Sacubitril/Valsartan (Entresto 49 Mg-51 Mg Tablet) 1 each PO BID [facility] Last Admin: 05/08/18 17:50 Dose: 1 each Sitagliptin Phosphate (Januvia) 100 mg PO DAILY [facility] Last Admin: 05/08/18 15:19 Dose: 100 mg Spironolactone (Aldactone) 25 mg PO BID [facility] Last Admin: 05/08/18 17:50 Dose: 25 mg Ticagrelor (Brilinta) 90 mg PO BID [facility] - Labs Labs: PT 10.3 SECONDS (9.4-12.5) 05/08/18 08:20 INR 0.90 05/08/18 08:20 <Kaitlin Ho - Last Filed: 05/09/18 06:43> Objective - Vital Signs/Intake and Output Vital Signs (last 24 hours): Temp Pulse Resp BP Pulse Ox 97.8 F 69 18 120/79 100 05/09/18 05:56 05/09/18 05:56 05/09/18 05:56 05/09/18 05:56 05/08/18 12:56 Intake and Output: 05/08/18 05/09/18 18:59 06:59 Intake Total 240 Balance 240 - Medications Medications: Current Medications Acetaminophen (Tylenol 325mg Tab) 650 mg PO Q6H PRN PRN Reason: Fever >100.4 F Aspirin (Ecotrin) 81 mg PO DAILY [facility] Atorvastatin Calcium (Lipitor) 80 mg PO DAILY [facility] Last Admin: 05/08/18 15:19 Dose: 80 mg Carvedilol (Coreg) 6.25 mg PO BID [facility] Last Admin: 05/08/18 17:50 Dose: 6.25 mg Digoxin (Digoxin) 0.125 mg PO DAILY [facility] Last Admin: 05/08/18 15:19 Dose: 0.125 mg Enoxaparin Sodium (Lovenox) 60 mg SC Q12H [facility] PRN Reason: Protocol Last Admin: 05/09/18 05:46 Dose: 60 mg Furosemide (Lasix) 40 mg PO BID [facility] Last Admin: 05/08/18 17:50 Dose: 40 mg Glimepiride (Amaryl) 4 mg PO DAILY [facility] Last Admin: 05/08/18 15:19 Dose: 4 mg Metformin HCl (Glucophage) 850 mg PO BID [facility] Last Admin: 05/08/18 17:50 Dose: 850 mg Pantoprazole Sodium (Protonix Ec Tab) 40 mg PO 0630 [facility] Last Admin: 05/09/18 05:47 Dose: 40 mg Sacubitril/Valsartan (Entresto 49 Mg-51 Mg Tablet) 1 each PO BID [facility] Last Admin: 05/08/18 17:50 Dose: 1 each Sitagliptin Phosphate (Januvia) 100 mg PO DAILY [facility] Last Admin: 05/08/18 15:19 Dose: 100 mg Spironolactone (Aldactone) 25 mg PO BID [facility] Last Admin: 05/08/18 17:50 Dose: 25 mg Ticagrelor (Brilinta) 90 mg PO BID [facility] - Labs Labs: PT 10.3 SECONDS (9.4-12.5) 05/08/18 08:20 INR 0.90 05/08/18 08:20 Attending/Attestation - Attestation I have personally seen and examined this patient.: No I have fully participated in the care of the patient.: No I have reviewed all pertinent clinical information, including history, physical exam and plan: Yes Notes (Text): Order troponin and magnesium. Keep Mg > 2 and K > 4. Cardiology to see pt. 05/09/18 06:42
--- NOTE | 2018-05-09 06:00 | HP ---
HISTORY OF PRESENT ILLNESS: The patient is a 62-year-old. He woke up this morning, had cup of tea. After that, he started to have chest discomfort radiating toward his jaw, toward the back, left arm, was having headache, started to have palpitation. He was feeling as if somebody is squeezing his chest, so he came to emergency room for further evaluation. Denies any fever or chills. No nausea or vomiting. No diarrhea. Did feel gassy. Did not vomit. No hemoptysis, no hematemesis. PAST MEDICAL HISTORY: Significant for angioplasty. He had open heart surgery within last one year. The patient also has significant history of: 1. Defibrillator placement. 2. Ischemic cardiomyopathy. 3. Open heart surgery in [facility] in 2017 and he is being followed by Dr. Garzon in [facility] 4. Cvq-zlynjix-nwfzeifmn diabetes. 5. Hyperlipidemia, very noncompliant with his diet and medication. 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 ALLERGIES: HE IS NOT ALLERGIC TO ANY MEDICATION. SOCIAL HISTORY: He is , lives with his . Still smokes and drinks, although he was told on multiple occasions not to drink. MEDICATIONS AT HOME: He is on Aldactone 25 b.i.d., Linzess, aspirin 81 daily, carvedilol 12.5 twice a day, Plavix 75 daily, Crestor 20 mg daily, Amaryl 4 mg daily, Januvia 100 mg daily, Lasix 40 mg three times a day, omeprazole 40 mg daily, Entresto, multivitamin, digoxin 0.125 daily, metformin 850 twice a day. PHYSICAL EXAMINATION: GENERAL: He states he feels fine now. No chest pain, no shortness of breath. VITAL SIGNS: He is afebrile, pulse 83, respiration 20, blood pressure 127/76. LUNGS: Bilateral fair airflow. No rhonchi or crackle. HEART: S1, S2 audible. ABDOMEN: Soft, nontender. No rebound, no guarding. NEUROLOGIC: He is awake, alert, oriented, communicative. LABORATORY DATA: WBC is 8.6, hemoglobin 15, hematocrit 42, platelet 155. PT 10.3, INR 0.9. Chemistry: Sodium 136, potassium 4.7, chloride 106, CO2 of 19, BUN 11, creatinine 0.7, blood sugar 233, phosphorus 4.6, magnesium 1.3. LFTs are within normal limit. BNP 1750. Troponin 0.16. Digoxin 0.4. Alcohol level is less than 10. His EKG shows sinus rhythm with first-degree AV block, anteroseptal infarct. ASSESSMENT: 1. Chest pain, rule out ischemia, is positive for troponin. 2. Hypertension. 3. Hyperlipidemia. 4. Rta-elbpogm-bawjmfumo diabetes. 5. Peptic ulcer disease. PLAN: We will restart the patient his usual medication. He is on carvedilol. Because of positive troponin, he has been started on Lovenox. We will start him on Brilinta. Cardiology consult has been requested. We will follow up his electrolytes, serial EKG. We will follow up the patient in a.m. Lynn Yoder MD
[2018-05-09] MEDS ORDERED: Pantoprazole 40 mg EC Tab PO SCH (06:30)
[2018-05-09 07:12] LABS: LDL CHOLESTEROL 134 mg/dL (0-129)
[2018-05-09 07:40] LABS: ALB/GLOB RATIO 1.1 (1.1-1.8); ALBUMIN 3.6 g/dL (3.0-4.8); ALT/SGPT 20 U/L (7-56); AST/SGOT 26 U/L (17-59); BLOOD UREA NITROGEN 12 mg/dL (7-21); CALCIUM 11.2 mg/dL (8.4-10.5); GFR NON-AFRICAN AMERICAN > 60; HDL CHOLESTEROL 68 mg/dL (29-60)
--- NOTE | 2018-05-09 08:00 | CP.PCM.PN ---
Subjective - Date & Time of Evaluation Date of Evaluation: 05/09/18 Time of Evaluation: 06:40 - Subjective Subjective: Awake,alert,denies chest pain now,no shortness of breath Reason for consultation and follow up: Cardiac evaluation of chest pain, NSTEMI , history of coronary artery disease post CABG at [facility], cardiomyopathy, hypertension,hypercholesterolemia Seen and examined by me and Dr. Hull Objective - Vital Signs/Intake and Output Vital Signs (last 24 hours): Temp Pulse Resp BP Pulse Ox 97.8 F 69 18 120/79 100 05/09/18 05:56 05/09/18 05:56 05/09/18 05:56 05/09/18 05:56 05/08/18 12:56 Intake and Output: 05/09/18 05/09/18 06:59 18:59 Intake Total 240 Balance 240 - Medications Medications: Current Medications Acetaminophen (Tylenol 325mg Tab) 650 mg PO Q6H PRN PRN Reason: Fever >100.4 F Aspirin (Ecotrin) 81 mg PO DAILY [facility] Atorvastatin Calcium (Lipitor) 80 mg PO DAILY [facility] Last Admin: 05/08/18 15:19 Dose: 80 mg Carvedilol (Coreg) 6.25 mg PO BID [facility] Last Admin: 05/08/18 17:50 Dose: 6.25 mg Digoxin (Digoxin) 0.125 mg PO DAILY [facility] Last Admin: 05/08/18 15:19 Dose: 0.125 mg Enoxaparin Sodium (Lovenox) 60 mg SC Q12H [facility] PRN Reason: Protocol Last Admin: 05/09/18 05:46 Dose: 60 mg Furosemide (Lasix) 40 mg PO BID [facility] Last Admin: 05/08/18 17:50 Dose: 40 mg Glimepiride (Amaryl) 4 mg PO DAILY [facility] Last Admin: 05/08/18 15:19 Dose: 4 mg Metformin HCl (Glucophage) 850 mg PO BID [facility] Last Admin: 05/08/18 17:50 Dose: 850 mg Pantoprazole Sodium (Protonix Ec Tab) 40 mg PO 0630 [facility] Last Admin: 05/09/18 05:47 Dose: 40 mg Sacubitril/Valsartan (Entresto 49 Mg-51 Mg Tablet) 1 each PO BID [facility] Last Admin: 05/08/18 17:50 Dose: 1 each Sitagliptin Phosphate (Januvia) 100 mg PO DAILY [facility] Last Admin: 05/08/18 15:19 Dose: 100 mg Spironolactone (Aldactone) 25 mg PO BID [facility] Last Admin: 05/08/18 17:50 Dose: 25 mg Ticagrelor (Brilinta) 90 mg PO BID [facility] - Labs Labs: 05/09/18 05:20 PT 10.3 SECONDS (9.4-12.5) 05/08/18 08:20 INR 0.90 05/08/18 08:20 - Constitutional Appears: No Acute Distress - Eye Exam Eye Exam: Normal appearance - ENT Exam ENT Exam: Mucous Membranes Moist - Respiratory Exam Respiratory Exam: Decreased Breath Sounds, Clear to Ausculation Bilateral, NORMAL BREATHING PATTERN - Cardiovascular Exam Cardiovascular Exam: REGULAR RHYTHM, +S1 Additional comments: telemetry NSR - GI/Abdominal Exam GI & Abdominal Exam: Soft, Normal Bowel Sounds - Extremities Exam Extremities Exam: Full ROM, Normal Capillary Refill - Neurological Exam Neurological Exam: Alert, Awake, Oriented x3 - Psychiatric Exam Psychiatric exam: Normal Affect - Skin Skin Exam: Intact, Warm Assessment and Plan - Assessment and Plan (Free Text) Assessment: A 62 year old male who came in to the ER due to chest pain.He described as 6/10 mid sternal chest pain.History hypertension, cardiomyopathy, coronary artery disease, post coronary artery bypass grafting at [facility] last year, NSTEMI and diabetes. Denies chest pain now however positive troponin x 2. Recommended cardiac cath here at [facility] however wanted to be done at [facility]. Dr. Hull spoke with Dr. Garzon (his supervisor hospitality house at [facility]) who accepted the patient for possible cardiac cath. Kept NPO. Plan: Denies chest pain now Positive troponin, NSTEMI Kept NPO Heart rate and blood pressure stable Recommended cardiac cath here at [facility] but wanted at [facility] Transfer to [facility] as patient request Follows up with Dr. Ryann Garzon accepted patient for possible cardiac cath today Continue current treatment Continue current medications Will follow up Plan and treatment discussed with Dr. Hull
[2018-05-09] MEDS ORDERED: Magnesium Oxide 400 mg Tab UD PO STA (08:59)
[2018-05-09 09:09] LABS: TROPONIN I 0.17 ng/mL
[2018-05-09] MEDS: SACUBITRIL 49mg/VALSARTAN 51mg tab PO SCH ×2 (09:28→18:19)
[2018-05-09] MEDS: Digoxin 125 mcg (0.125 mg) Tab PO SCH (09:28)
[2018-05-09 09:29] VITALS: PULSE 74
[2018-05-09] MEDS: Magnesium Sulfate 2 gm/50 ml 2 GM/50 ML BAG IVPB SCH ×2 (09:29→10:48)
[2018-05-09] MEDS ORDERED: Dextrose 5%/0.45% NS 1,000 ML IV SCH (11:00)
[2018-05-09] MEDS ORDERED: Sodium Chloride 0.9% 1,000 ML IV SCH (12:45)
--- NOTE | 2018-05-09 14:10 | DS ---
HISTORY OF PRESENT ILLNESS: The patient is 62 years old, seen and examined. Doing well. No chest pain. No shortness of breath. No nausea or vomiting. No diarrhea. Has positive troponin. Being transferred to [facility] for possible cardiac cath. PHYSICAL EXAMINATION: GENERAL: Today, on examination, he is awake, alert, oriented, communicative. VITAL SIGNS: He is afebrile, pulse 77, respirations 18, blood pressure 112/76. LUNGS: Bilateral good airflow. No rhonchi or crackle. HEART: S1 and S2 audible. ABDOMEN: Soft. Nontender. No rebound. No guarding. NEUROLOGICAL: The patient is awake, alert, oriented, able to communicate. EXTREMITIES: Bilateral legs, no edema. LABORATORY EXAM: Sodium 137, potassium 4.3, chloride 100, CO2 of 30, BUN 12, creatinine 1, blood sugar 127, calcium 11.2, magnesium 1.6, troponin 0.17. ASSESSMENT: 1. Bsj-MO-avcraxsxh myocardial infarction. 2. Hypertension. 3. Hyperlipidemia. 4. Coronary artery disease. 5. Status post defibrillator placement. 6. History of open heart surgery in the remote past. 7. Noninsulin-dependent diabetes. 8. Noncompliance. PLAN: We will continue the patient on current medication. The patient will be transferred as soon as the bed is available for possible cath either today or tomorrow by Dr. Garzon in [facility]. Lynn Yoder MD
[2018-05-09 14:31] VITALS: TEMP 98.6
[2018-05-09] MEDS ORDERED: Magnesium Citrate Oral SOL (300 ml) PO ONE (15:32)
--- NOTE | 2018-05-09 16:10 | CARD ---
APPROVED REPORT Date of service: 05/09/2018 EKG Measurement Heart [id number] <Conclusion> Normal sinus rhythm Possible Left atrial enlargement Anteroseptal infarct, age undetermined T wave abnormality, consider lateral ischemia Abnormal ECG
[2018-05-09 18:21] VITALS: BP 137/95; PULSE 93
== END 2018-05-09 21:13 | disposition short-term general hospital (02) ==
LOC: ED 08:13 → ERH 11:09 → 2RNO 13:00
PROVIDERS: ADMIT Internal Medicine; ATTEND Internal Medicine
DX: I21.4 Non-ST elevation (NSTEMI) myocardial infarction (principal); I25.10 Atherosclerotic heart disease of native coronary artery without angina pectoris; I10 Essential (primary) hypertension; E11.9 Type 2 diabetes mellitus without complications; E78.5 Hyperlipidemia, unspecified; I25.5 Ischemic cardiomyopathy; F17.200 Nicotine dependence, unspecified, uncomplicated; K27.9 Peptic ulcer, site unspecified, unspecified as acute or chronic, without hemorrhage or perforation; I25.2 Old myocardial infarction; E83.42 Hypomagnesemia; E78.00 Pure hypercholesterolemia, unspecified; Z91.11 Patient's noncompliance with dietary regimen; Z79.84 Long term (current) use of oral hypoglycemic drugs; Z95.810 Presence of automatic (implantable) cardiac defibrillator; Z91.19 Patient's noncompliance with other medical treatment and regimen; Z79.02 Long term (current) use of antithrombotics/antiplatelets; Z79.82 Long term (current) use of aspirin; Z95.1 Presence of aortocoronary bypass graft; Z95.5 Presence of coronary angioplasty implant and graft
CPT/HCPCS: 36415; 71045; 80053; 80061; 80162; 82550; 82948; 83036; 83615; 83735; 83880; 84100; 84443; 84484; 85025; 85610; 93005; 96374; 99285; C9113; G0378; G0480; J1650; J2270; J2405; J7030; J7040

== ENCOUNTER 2018-07-06 10:16 | Inpatient (IN) | payer MEDICARE ==
[2018-07-06 10:16] VITALS: BMI 23.9
[2018-07-06] MEDS ORDERED: Pantoprazole 40mg/100mL NS 40 MG/100 ML BAG IV STA (10:46)
--- NOTE | 2018-07-06 10:49 | ED PDOC ---
Arrival/HPI - General Chief Complaint: Abdominal Pain Time Seen by Provider: 07/06/18 10:19 Historian: Patient, Family (Son) - History of Present Illness Narrative History of Present Illness (Text): 07/06/18 10:46 A 62 year old male, whose past medical history includes multiple coronary stents and CABG 6 months ago, presents to the emergency department with a complaint of 2-3 day duration intermittent generalized abdominal pain and bilateral CVA tenderness. The patient notes that he has experienced nausea and one episode of diarrhea. The patient denies exposure or recent travel. He notes that he quit smoking 10 years ago and drinking 2 months ago. The patient denies fevers, chills, headache, dizziness, chest pain, shortness of breath, dyspnea on exertion, cough, vomiting, neck pain, urinary/bowel changes, or any other complaint. Time/Duration: Other (2-3 days) Symptom Onset: Gradual Symptom Course: Unchanged Activities at Onset: Rest, Light Context: Home Past Medical History - Provider Review Nursing Documentation Reviewed: Yes - Past History Past History: Non-Contributing - Infectious Disease Hx of Infectious Diseases: None - Tetanus Immunization Tetanus Immunization: Unknown - Cardiac Hx MO: Yes Hx Pacemaker: Yes ([employer]) - Pulmonary Hx Asthma: Yes - Neurological Hx Paralysis: No - HEENT Hx Cataracts: Yes (bilateral catarct surgery) - Renal Hx Renal Disorder: No - Endocrine/Metabolic Hx Diabetes Mellitus Type 2: Yes - Hematological/Oncological Hx Blood Transfusions: Yes Hx Blood Transfusion Reaction: No - Integumentary Hx Dermatological Disorder: No - Musculoskeletal/Rheumatological Hx Musculoskeletal Disorders: Yes - Gastrointestinal Hx Gastrointestinal Disorders: Yes - Genitourinary/Gynecological Hx Sexually Transmitted Diseases: No - Psychiatric Hx Depression: No Hx Substance Use: No - Past Surgical History Past Surgical History: Unable to Obtain - Surgical History Hx Coronary Artery Bypass Graft: Yes Hx Coronary Stent: Yes - Anesthesia Hx Anesthesia: Yes Hx Anesthesia Reactions: No Hx Malignant Hyperthermia: No - Suicidal Assessment Feels Threatened In Home Enviroment: No Family/Social History - Physician Review Nursing Documentation Reviewed: Yes Family/Social History: No Known Family HX Smoking Status: Former Smoker Hx Alcohol Use: (OCCASIONAL) Hx Substance Use: No Hx Substance Use Treatment: No Allergies/Home Meds Allergies/Adverse Reactions: Allergies No Known Allergies Allergy (Verified 07/06/18 10:26) Home Medications: Home Meds Medication Instructions Recorded Confirmed Glimepiride [Amaryl] 4 mg PO DAILY 08/30/17 07/06/18 Multivitamin [Daily Danyell] 1 each PO DAILY 08/30/17 07/06/18 Rosuvastatin Calcium [Crestor] 20 mg PO DAILY 08/30/17 07/06/18 SITagliptin [Januvia] 100 mg PO DAILY 08/30/17 07/06/18 metFORMIN [glucOPHAGE] 850 mg PO BID 08/30/17 07/06/18 Digoxin [Lanoxin] 0.125 mg PO DAILY 11/14/17 07/06/18 Entresto 49 mg-51 mg Tablet 1 tab PO BID 11/14/17 07/06/18 Aspirin [Adult Low Dose Aspirin EC] 1 tab PO DAILY 05/08/18 07/06/18 Carvedilol [Coreg] 1 tab PO BID 05/08/18 07/06/18 Linaclotide [Linzess] 72 mcg PO DAILY 05/08/18 07/06/18 Spironolactone [Aldactone] 25 mg PO DAILY 05/08/18 07/06/18 Linaclotide [Linzess] 72 mcg PO DAILY 07/06/18 07/06/18 Ticagrelor [Brilinta] 90 mg PO BID 07/06/18 07/06/18 Review of Systems - Physician Review All systems were reviewed & negative as marked: Yes - Review of Systems Constitutional: absent: Fevers ENT: absent: Sore Throat Respiratory: absent: SOB, Cough Cardiovascular: CRUZ. absent: Chest Pain Gastrointestinal: Abdominal Pain, Diarrhea, Nausea. absent: Stool Changes, Vomiting Genitourinary Male: absent: Urinary Output Changes Musculoskeletal: Back Pain (Bilateral CVA pain). absent: Neck Pain Neurological: Dizziness. absent: Headache Physical Exam Vital Signs Reviewed: Yes Vital Signs Temp Pulse Resp BP Pulse Ox 07/06/18 10:23 97.5 F L 62 17 128/81 100 Temperature: Hypothermic Blood Pressure: Normal Pulse: Regular Respiratory Rate: Normal Appearance: Positive for: Well-Appearing, Non-Toxic, Comfortable Pain Distress: None Mental Status: Positive for: Alert and Oriented X 3 Finger Stick Blood Glucose: 260 - Systems Exam Head: Present: Atraumatic, Normocephalic Pupils: Present: PERRL Extroacular Muscles: Present: EOMI Conjunctiva: Present: Normal Mouth: Present: Moist Mucous Membranes Neck: Present: Normal Range of Motion Respiratory/Chest: Present: Clear to Auscultation, Good Air Exchange. No: Respiratory Distress, Accessory Muscle Use Cardiovascular: Present: Regular Rate and Rhythm, Normal S1, S2. No: Murmurs Abdomen: Present: Tenderness (Mild generalized abdominal tenderness). No: Distention, Peritoneal Signs, Rebound, Guarding Back: Present: CVA Tenderness (Mild bilateral CVA tenderness) Upper Extremity: Present: Normal Inspection. No: Cyanosis, Edema Lower Extremity: Present: Normal Inspection. No: Edema Neurological: Present: GCS=15, CN II-XII Intact, Speech Normal Skin: Present: Warm, Dry, Normal Color. No: Rashes Psychiatric: Present: Alert, Oriented x 3, Normal Insight, Normal Concentration Medical Decision Making ED Course and Treatment: 07/06/18 10:50 Impression: A 62 year old male presents to the emergency department with a complaint of 2-3 day duration intermittent abdominal pain and bilateral CVA tenderness. Plan: -- Abdomen/Pelvis CT -- EKG -- Chest X-ray -- Labs -- Urinalysis -- Protonix, Toradol, and Zofran -- Reassess and disposition Prior Visits: Notes and results from previous visits were reviewed. Progress Notes: 07/06/18 12:45 Dr. Yoder was here and saw the patient. 07/06/18 13:57 EKG shows sinus bradycardia rate approximately 50 with a primary AV block and poor R-wave progression and inverted T waves. - Lab Interpretations I have reviewed the lab results: Yes - RAD Interpretation Radiology Orders: X-ray chest one view as read by the radiologist shows a pacemaker hardware with no infiltrate effusion or cardiomegaly. Quilter Fixer: Radiologist - EKG Interpretation Interpreted by ED Physician: Yes Type: 12 lead EKG - Scribe Statement The provider has reviewed the documentation as recorded by the Anat Palacio Provider Scribe Attestation: All medical record entries made by the Scribe were at my direction and personally dictated by me. I have reviewed the chart and agree that the record accurately reflects my personal performance of the history, physical exam, medical decision making, and the department course for this patient. I have also personally directed, reviewed, and agree with the discharge instructions and disposition. Disposition/Present on Arrival - Present on Arrival Any Indicators Present on Arrival: No History of DVT/PE: No History of Uncontrolled Diabetes: Yes Urinary Catheter: No History of Decub. Ulcer: No History Surgical Site Infection Following: None - Disposition Have Diagnosis and Disposition been Completed?: Yes Diagnosis: Hyperkalemia, Hyperglycemia, Abdominal pain, Low back pain Disposition: HOSPITALIZED Disposition Time: 12:46 Patient Plan: Admission, Telemetry Patient Problems: Current Active Problems Problem Status Onset Abdominal pain Acute Hyperglycemia Acute Hyperkalemia Acute Low back pain Acute Condition: FAIR
--- NOTE | 2018-07-06 11:11 | RAD ---
Date of service: 07/06/2018 HISTORY: ap COMPARISON: 05/08/2018 FINDINGS: LUNGS: No active pulmonary disease. PLEURA: No significant pleural effusion identified, no pneumothorax apparent. CARDIOVASCULAR: No aortic atherosclerotic calcification present. Normal cardiac size. No pulmonary vascular congestion. OSSEOUS STRUCTURES: Sternal wires VISUALIZED UPPER ABDOMEN: Normal. OTHER FINDINGS: Single lead pacemaker IMPRESSION: No active disease.
[2018-07-06 11:32] LABS: BASO # 0.04 K/mm3 (0.0-2.0); BASO % 0.3 % (0.0-3.0); EOS # 0.3 (0.0-0.7); EOS % 2.5 % (1.5-5.0); GRAN # 9.45 (1.4-6.5); GRAN % 77.7 % (50.0-68.0); HEMOGLOBIN 12.3 g/dL (14.0-18.0); LYMPH # 1.7 (1.2-3.4); LYMPH % 13.6 % (22.0-35.0); MEAN CELL VOLUME 91.4 fl (80.0-105.0); MEAN CORPUSCULAR HEMOGLOBIN 31.1 pg (25.0-35.0); MEAN CORPUSCULAR HGB CONC 34.1 g/dl (31.0-37.0); MEAN PLATELET VOLUME 10.5 fl (7.0-11.0); MONO # 0.7 (0.1-0.6); MONO % 5.9 % (1.0-6.0); RBC 3.95 10^6/uL (3.5-6.1); RED CELL DISTRIBUTION WIDTH 12.4 % (11.5-14.5); WHITE BLOOD COUNT 12.2 10^3/uL (4.5-11.0)
[2018-07-06 11:39] LABS: INR 0.97; PARTIAL THROMBOPLASTIN TIME 30.5 Seconds (25.1-36.5); PROTHROMBIN TIME 11.1 SECONDS (9.4-12.5)
[2018-07-06 11:45] LABS: ALB/GLOB RATIO 1.2 (1.1-1.8); ALBUMIN 4.3 g/dL (3.0-4.8); ALT/SGPT 21 U/L (7-56); AMYLASE 96 U/L (35-125); AST/SGOT 26 U/L (17-59); BLOOD UREA NITROGEN 6 mg/dL (7-21); CALCIUM 9.8 mg/dL (8.4-10.5); GFR NON-AFRICAN AMERICAN > 60; LIPASE 258 U/L (23-300)
[2018-07-06 11:51] LABS: TROPONIN I < 0.01 ng/mL
--- NOTE | 2018-07-06 11:54 | CT ---
Date of service: 07/06/2018 PROCEDURE: CT Abdomen and Pelvis without intravenous contrast HISTORY: pain COMPARISON: None. TECHNIQUE: Without contrast. Contrast dose: Radiation dose: Total exam DLP = 280.11 mGy-cm. This CT exam was performed using one or more of the following dose reduction techniques: Automated exposure control, adjustment of the mA and/or kV according to patient size, and/or use of iterative reconstruction technique. FINDINGS: LOWER THORAX: Unremarkable. LIVER: Unremarkable. No gross lesion or ductal dilatation. GALLBLADDER AND BILE DUCTS: Unremarkable. PANCREAS: Unremarkable. No gross lesion or ductal dilatation. SPLEEN: Unremarkable. ADRENALS: Unremarkable. No mass. KIDNEYS AND URETERS: Unremarkable. No hydronephrosis. No solid mass. VASCULATURE: Unremarkable. No aortic aneurysm. Aortic calcification BOWEL: Unremarkable. No obstruction. No gross mural thickening. APPENDIX: Unremarkable. Normal appendix. PERITONEUM: Unremarkable. No free fluid. No free air. LYMPH NODES: Unremarkable. No enlarged lymph nodes. BLADDER: Unremarkable. REPRODUCTIVE: Unremarkable. BONES: No acute fracture. OTHER FINDINGS: None. IMPRESSION: No acute intra-abdominal findings.
[2018-07-06] MEDS ORDERED: Insulin Regular 1 UNITS/0.01 ML ML IVP STA (12:38)
[2018-07-06 12:39] LABS: BLOOD UREA NITROGEN 6 mg/dL (7-21); CALCIUM 9.3 mg/dL (8.4-10.5); GFR NON-AFRICAN AMERICAN > 60
[2018-07-06] MEDS ORDERED: Sod Polystyrene Sulf 15 gm/60 ml Susp PO STA (12:46)
[2018-07-06 15:05] LABS: URINE APPEARANCE CLEAR (CLEAR); URINE BILIRUBIN NEGATIVE (NEGATIVE); URINE BLOOD SMALL (NEGATIVE); URINE COLOR YELLOW (YELLOW); URINE GLUCOSE (UA) >=1000 mg/dL (NEGATIVE); URINE LEUKOCYTE ESTERASE NEGATIVE Leu/uL (NEGATIVE); URINE PROTEIN 100 mg/dL (<30 mg/dL); URINE UROBILINOGEN 0.2 E.U./dL (<1 E.U./dL)
[2018-07-06 15:10] LABS: URINE BACTERIA TRACE (NEG); URINE EPITHELIAL CELLS 0 - 2 /hpf (0-5); URINE RBC 0 - 2 /hpf (0-2); URINE WBC 0 - 2 /hpf (0-6)
--- NOTE | 2018-07-06 15:41 | CARD ---
APPROVED REPORT Date of service: 07/06/2018 EKG Measurement Heart [id number] <Conclusion> Marked sinus bradycardia with 1st degree AV block Anteroseptal infarct, age undetermined T wave abnormality, consider lateral ischemia Abnormal ECG
[2018-07-06] MEDS ORDERED: MULTIVITAMIN PO SCH (17:30)
[2018-07-06] MEDS ORDERED: Non Formulary Medication (Rosuvastatin Calcium [Crestor] 20 MG) PO SCH (17:30)
[2018-07-06] MEDS ORDERED: Multivitamin Therapeutic Tab PO ONE (17:45)
[2018-07-06] MEDS ORDERED: ENTRESTO PO SCH (18:00)
[2018-07-06 18:41] LABS: TROPONIN I < 0.01 ng/mL
[2018-07-06 19:02] LABS: ALB/GLOB RATIO 1.2 (1.1-1.8); ALBUMIN 4.1 g/dL (3.0-4.8); ALT/SGPT 24 U/L (7-56); AST/SGOT 27 U/L (17-59); BLOOD UREA NITROGEN 6 mg/dL (7-21); CALCIUM 9.8 mg/dL (8.4-10.5); GFR NON-AFRICAN AMERICAN > 60
[2018-07-06] MEDS: Insulin Lispro (humaLOG) MEDIUM Coverage SC SCH (22:30)
[2018-07-06 23:35] VITALS: RESP 20
[2018-07-07 06:00] VITALS: O2SAT 99
[2018-07-07 08:19] LABS: TROPONIN I < 0.01 ng/mL
[2018-07-07 08:25] LABS: ALB/GLOB RATIO 1.2 (1.1-1.8); ALBUMIN 3.6 g/dL (3.0-4.8); ALT/SGPT 14 U/L (7-56); AST/SGOT 22 U/L (17-59); BLOOD UREA NITROGEN 7 mg/dL (7-21); GFR NON-AFRICAN AMERICAN > 60
[2018-07-07] MEDS: Insulin Lispro (humaLOG) MEDIUM Coverage SC SCH (08:42)
[2018-07-07 09:25] VITALS: PULSE 77
[2018-07-07] MEDS ORDERED: Digoxin 125 mcg (0.125 mg) Tab PO SCH (10:00)
[2018-07-07] MEDS ORDERED: Multivitamin Therapeutic Tab PO SCH (10:00)
[2018-07-07 11:52] VITALS: BP 118/76; PULSE 67; TEMP 98.3
--- NOTE | 2018-07-08 01:46 | DS ---
HISTORY OF PRESENT ILLNESS: The patient is a 62-year-old, known to me from multiple previous admissions, came to the ER because of left flank pain. He was found to be hyperkalemic. The patient was found to be on Aldactone. He was given Kayexalate, followup potassium is 4.9. No abdominal pain. No chest pain. No shortness of breath. Eating and tolerating. PHYSICAL EXAMINATION: GENERAL: Today, he is awake, alert, oriented, and communicative. VITAL SIGNS: He is afebrile, pulse 67, respirations 20, blood pressure 118/76. LUNGS: Bilateral fair airflow. No rhonchi or crackle. HEART: S1 and S2 audible. ABDOMEN: Soft. Nontender. No rebound. No guarding. NEUROLOGICAL: He is awake, oriented, communicative and ambulatory. LABORATORY EXAM: WBC is 12.2, hemoglobin 12, hematocrit 36, platelets of 233. Chemistry: Sodium 139, potassium 4.9, chloride 107, CO2 of 24, BUN 7, creatinine 1.0, blood sugar 145. Urinalysis is unremarkable. ASSESSMENT AND PLAN: 1. Hyperkalemia probably secondary to Aldactone. 2. Hypertension. 3. Coronary artery disease status post open heart surgery. 4. Gny-iidbukv-esbbtersg diabetes, not very compliant with medication. 5. Cardiomyopathy. 6. History of alcohol use. 7. History of heavy smoking in the past. PLAN: The patient is going to resume his medication. As prior to admission, he was told not to restart spironolactone and recheck with his doctor as an outpatient. He can continue metformin, Brilinta, Crestor, Linzess, Amaryl, Entresto, digoxin, carvedilol, aspirin and Januvia. He will follow up with me and PMD as an outpatient. Lynn Yoder MD
--- NOTE | 2018-07-08 09:17 | HP ---
DATE OF EXAM: 07/06/2018 HISTORY OF PRESENT ILLNESS: The patient is a 62-year-old who is known to me from multiple previous admission. The patient states he went to bed okay, but he woke up this morning with left flank pain and he just took one piece of donut with tea, after that he is saying it got worse. He did not throw up. No history of diarrhea. No history of nausea or vomiting. By the time of examination, the patient's flank pain has almost subsided. PAST MEDICAL HISTORY: Significant for; 1. Coronary artery disease. 2. Open heart surgery. 3. Status post multiple angioplasty. 4. History of pacemaker replacement. 5. Poorly controlled diabetes. 6. Hyperlipidemia. 7. History of smoking, recently quit after his open heart surgery. 8. History of alcohol use. ALLERGIES: HE IS NOT ALLERGIC TO ANY MEDICATIONS. MEDICATIONS AT HOME: He is on metformin 850 twice a day, Brilinta 90 mg twice a day, Linzess 72 daily, Crestor 20 mg daily, multivitamin, mg daily, and he is on digoxin, carvedilol, aspirin, spironolactone, and Januvia. SOCIAL HISTORY: He was an ex-smoker, but he quit in 2007. PHYSICAL EXAMINATION: GENERAL: He is comfortable. VITAL SIGNS: He is afebrile, pulse 69, respirations 18, and blood pressure 148/55. LUNGS: Bilateral diffusely decreased breath sounds. No rhonchi or crackle. HEENT: S1 and S2 are audible. ABDOMEN: Soft and nontender. No rebound. No guarding. NEUROLOGIC: The patient is awake, alert, oriented, and able to communicate. EXTREMITIES: Bilateral leg, no edema. LABORATORY DATA: WBC is 12.2, hemoglobin 12.3, hematocrit 36, and platelet 233. PT 11.1. INR 0.97. Chemistry: Sodium 135, potassium 5.7, chloride 103, CO2 of 21, BUN 6, and creatinine 0.7. Blood sugar of 288. Urinalysis is negative. Digoxin is 0.4. EKG showed marked sinus bradycardia with first-degree A-V block, anteroseptal infarct with age undetermined. CT scan of the abdomen and pelvis was done that shows no acute abnormalities. ASSESSMENT AND PLAN: 1. Left flank pain, etiology unknown, that has resolved, might be constipation related. 2. Hyperkaliemia could be secondary to spironolactone. 3. Hypertension. 4. Coronary artery disease. 5. Noninsulin-dependent diabetes. PLAN: The patient is given calcium gluconate. He was given Kayexalate. He is started on Protonix. We will resume his medications. Monitor blood sugar and followup electrolyte in a.m. If his potassium improves, I will check his Chem-7 at 6 o'clock and if his potassium improve, possible discharge in a.m. Lynn Yoder MD
== END 2018-07-07 13:18 | disposition home or self-care (01) | DRG 641 ==
LOC: ED 10:16 → ERH 12:50 → 2RSO 16:50
PROVIDERS: ADMIT Internal Medicine; ATTEND Internal Medicine
DX: E87.5 Hyperkalemia (principal); I42.9 Cardiomyopathy, unspecified; T50.0X5A Adverse effect of mineralocorticoids and their antagonists, initial encounter; E11.65 Type 2 diabetes mellitus with hyperglycemia; E78.5 Hyperlipidemia, unspecified; I10 Essential (primary) hypertension; I25.10 Atherosclerotic heart disease of native coronary artery without angina pectoris; K59.00 Constipation, unspecified; I25.2 Old myocardial infarction; Z79.02 Long term (current) use of antithrombotics/antiplatelets; Z79.82 Long term (current) use of aspirin; Z79.84 Long term (current) use of oral hypoglycemic drugs; Z79.899 Other long term (current) drug therapy; Z87.891 Personal history of nicotine dependence; Z95.0 Presence of cardiac pacemaker; Z95.1 Presence of aortocoronary bypass graft; Z95.5 Presence of coronary angioplasty implant and graft

== ENCOUNTER 2018-09-17 12:20 | Outpatient (CLI) | payer MEDICARE | END 2018-09-17 12:21 | disposition home or self-care (01) | LOC: RAD 12:20 ==